=== PATIENT | female | born 1960 | race Caucasian/White ===

== ENCOUNTER → 2017-11-12 | Outpatient (CLI) | payer MEDICARE, OTHER | LOC: CARD 15:04 | PROVIDERS: ATTEND Family Medicine | DX: M79.605 Pain in left leg (principal); M79.604 Pain in right leg | CPT/HCPCS: 93922; 93925 ==

== ENCOUNTER → 2017-11-18 | Outpatient (CLI) | payer MEDICARE, OTHER ==
--- NOTE | 2017-11-18 14:22 | Diagnostic Imaging Report ---
PROCEDURE:X-RAY CERVICAL SPINE, TWO VIEWS COMPARISON:Cervical spine x-rays 02/16/17 INDICATIONS:CERICALGIA FINDINGS: The lateral view is visualized from the skull base to C6. The bones are diffusely demineralized. The vertebral bodies are well-aligned. No prevertebral soft tissue swelling. Moderate disc space narrowing and endplate osteophytic lipping at C5-6 appears similar. No significant facet arthropathy. C6-C7 degenerative changes are poorly visualized on this exam. The C1/C2-odontoid interval is normal. Alignment is maintained on AP image. The lateral masses of C1 are partially obscured but appear grossly aligned. The skull base and upper chest are unremarkable. Calcifications of the left carotid bulb are stable.. CONCLUSION: Stable degenerative changes, most severe at C5-6. No new findings. Dictated by: Rose Marie Mcnamara M.D. on 11/18/2017 at 14:30 Electronically approved by: Rose Marie Mcnamara M.D. on 11/18/2017 at 14:30
--- NOTE | 2017-11-18 14:28 | Diagnostic Imaging Report ---
PROCEDURE:SP LUMBAR AP \T\ LATERAL 2-3VWS TECHNIQUE:AP, lateral and cone-down lateral views lumbar spine INDICATION:Lumbago COMPARISON:None. FINDINGS: 5 [id number] lumbar vertebral bodies. Vertebral body height is maintained. Asymmetric loss of disc space height at L3-L4 with bone on bone apposition at the right aspect of L3-L4. Associated scoliosis and degenerative endplate changes. Mild disc space height narrowing at L4-L5 and L5-S1. No evidence of spondylolisthesis. CONCLUSION: Multilevel degenerative disc disease most significant at L3-L4 and L4-L5. L3-L4 degenerative changes are asymmetric, worse on the right than on the left with associated [id number] apposition. If the patient has neuropathy MRI is recommended for evaluation. Dictated by: Mega Morase M.D. on 11/18/2017 at 14:36 Electronically approved by: Mega Moraes M.D. on 11/18/2017 at 14:36
--- NOTE | 2017-11-18 14:32 | Diagnostic Imaging Report ---
PROCEDURE:HIPS BILAT 3-4VWS (+/- PELVIS) TECHNIQUE: AP and frog-leg images of the hips obtained INDICATION:Lumbago, hip pain COMPARISON:Lumbar spine series 02/16/17 FINDINGS: The bones are diffusely demineralized. The bones are well developed without fracture, dislocation or focal osseous lesion. There no degenerative changes of either hip. Visualized portions of the sacroiliac joints are patent. There are no vascular calcifications. CONCLUSION: No degenerative changes or other osseous abnormalities to explain pain. Dictated by: Rose Marie Mcnamara M.D. on 11/18/2017 at 14:40 Electronically approved by: Rose Marie Mcnamara M.D. on 11/18/2017 at 14:40
--- NOTE | 2017-11-18 16:33 | Diagnostic Imaging Report ---
History: Neck and low back pain Comparison studies: None Technique: Sagittal T1, T2 and IR, axial T2 and axial gradient echo Intravenous contrast: None Findings: Alignment: Normal lordosis. No scoliosis. Cervicomedullary junction: No abnormalities. Patent foramen magnum. Soft tissues: No T2 hyperintense inflammatory changes. Spinal cord: Normal in size and signal from the foramen magnum through T4 Vertebrae: Normal in height and signal intensity. No fractures, infection or neoplasm. Degenerative changes: Diffuse disc degeneration with loss of T2 signal throughout the cervical spine. Decreased intervertebral space at C5-6 . C2-C3: Left uncinate process hypertrophy and facet hypertrophy results in mild left foraminal narrowing. C3-C4: Small central disc osteophyte complex and right uncinate process hypertrophy results in no significant canal stenosis and mild right foraminal narrowing C4-C5: Central disc osteophyte complex, ligamentum flavum thickening and facet hypertrophy results in moderate canal stenosis with flattening of the spinal cord. Mild right foraminal narrowing C5-C6: Diffuse posterior disc osteophyte complex, bilateral uncinate process hypertrophy, facet hypertrophy and ligamentum flavum thickening results in moderate to severe canal stenosis and moderate bilateral foraminal narrowing. Flattening of the spinal cord without signal intensity changes C6-C7: Diffuse disc osteophyte complex, uncinate process hypertrophy and facet hypertrophy results in moderate canal stenosis and moderate bilateral foraminal narrowing. Flattening of the spinal cord without signal intensity changes. C7-T1: Grossly patent canal and foramina IMPRESSION: 1. Multilevel degenerative moderate canal stenosis from C4 through C7 more significant at C5-6. Flattening of the spinal cord at this levels without signal intensity changes. 2. Moderate degenerative bilateral foraminal narrowing C5-6 and C6-7. Other mild degenerative changes as described above Signed by: DR Tucker Perez M.D. on 11/18/2017 4:30 PM
--- NOTE | 2017-11-18 18:01 | Diagnostic Imaging Report ---
History: Low back pain Comparison studies: X-ray of the lumbar spine 11/18/2017 and x-ray of the cervical spine 11/18/2017 Technique: Sagittal, coronal and axial T2 , sagittal T1 and IR, axial spin density oblique. Intravenous contrast: None Findings: Number of lumbar vertebral bodies:5 Alignment: Straightening of the lumbar spine lordosis. Grade 1 retrolistheses of L5 over S1.Mild levoscoliosis centered at L3. Soft tissues: No T2 hyperintense inflammatory changes. Multiple right cortical renal cysts measuring up to 1.2 cm at the upper pole. Paraspinal muscles: Mild fatty infiltration secondary to atrophy. Lower thoracic cord:Normal in signal and morphology. The tip of the conus is at T12-L1. Cauda equina: No masses. No arachnoiditis. Vertebrae: Mild endplate edema at L3-L4 with obliterated disc space secondary to Modic type I changes. The vertebral bodies are normal in height and signal intensity. No compression fractures, infection or neoplasm. Degenerative changes: L1-L2: No abnormalities. L2-L3: Mild bilateral facet hypertrophy and ligamentum flavum thickening without canal stenosis or foraminal narrowing. L3-L4: Disc degeneration with loss of T2 signal and decreased intervertebral space. Right central inferiorly migrated disc extrusion measuring 2.4 x 0.9 x 1.2 cm results in narrowing of the right lateral recesses contacting the descending L4 nerve root. Asymmetric right disc bulge mild facet hypertrophy and ligamentum flavum thickening results in moderate canal stenosis, severe right and mild left foraminal narrowing. Trace of fluid at the bilateral facet joints. L4-L5: Disc degeneration with loss of T2 signal. Asymmetric left disc bulge and mild facet hypertrophy results in mild canal stenosis and moderate left foraminal narrowing. L5-S1: Disc degeneration with loss of T2 signal and decreased intervertebral space. Diffuse disc bulge with superimposed central disc protrusion results in mild canal stenosis and moderate bilateral foraminal narrowing. Trace of fluid of the bilateral facet joints. Additional findings: Mild bilateral SI joint degenerative changes IMPRESSION: Moderate canal stenosis and severe right foraminal narrowing at L3-L4 secondary to asymmetric right disc bulge and posterior element hypertrophy. Possible impingement of the exiting right L3 nerve root. Right central inferiorly migrated disc extrusion at L3-L4 results in narrowing of the left lateral recess contacting the descending L4 nerve root. Moderate degenerative left foraminal narrowing at L4-L5. Mild canal stenosis and moderate bilateral foraminal narrowing at L5-S1 secondary to diffuse disc bulge with superimposed central disc protrusion and posterior element hypertrophy. Disc degeneration with Modic type I changes at L3-L4. Other mild degenerative changes as described above. Signed by: DR Tucker Perez M.D. on 11/18/2017 5:57 PM
== END ==
LOC: MRI 13:11
PROVIDERS: ATTEND Pain Medicine Pain Medicine
DX: M54.2 Cervicalgia (principal); M54.5 Low back pain; M25.552 Pain in left hip; M25.551 Pain in right hip
CPT/HCPCS: 72040; 72100; 72141; 72148; 73522

== ENCOUNTER → 2019-04-06 | Outpatient (CLI) | payer MEDICARE ==
[~2019-04-06] MED LIST: FENTANYL CITRATE/PF 100MCG/2 ML INJ ONE; SODIUM CHLORIDE 0.9% 500ML 1,000 ML ONE; SODIUM CHLORIDE 0.9% 500ML 500 ML ONE
[2019-04-06 14:07] VITALS: BP 130/86
== END ==
LOC: MRI 09:31
PROVIDERS: ATTEND Radiology Neuroradiology
DX: M54.12 Radiculopathy, cervical region (principal); M54.14 Radiculopathy, thoracic region; M54.16 Radiculopathy, lumbar region
CPT/HCPCS: 36415; 72141; 72146; 72148; 82948; J7040

== ENCOUNTER 2020-04-23 11:18 | Emergency (ER) | payer MEDICARE, OTHER ==
[~2020-04-23] VITALS: Ht 162.6 cm; Wt 63.5 kg
--- NOTE | 2020-04-23 11:41 | Emergency Department Note ---
History of Present Illnes History of Present Illness Chief Complaint: General Medicine Complaints History of Present Illness This is a 59 year old female arrived to the ED with complaints of right hip pain after slipping and falling on her right side. Patient admits to taking MS Contin and [place] prior to arrival but states her pain is not relieved. Chief Complaint Comment STATES SHE SLIPPED AND FELL LANDED ON RIGHT HIP 3 DAYS AGO STATES SHE HIT HEAD NO LOC DENIES BEING ON BLOOD THINNERS NO DEFORMITIES NOTED STATES SHE SMOKES 1.5 PACKS/CIGARETTES/DAY DENIES ETOH DENIES USING HOME O2 Historian: Patient Arrival Mode: Car Severity: moderate Onset quality: sudden Duration (how long): hour(s) Timing of current episode: constant Past Medical/Family History Physician Review I have reviewed the patient's past medical and family history. Any updates have been documented here. Past Medical History Recent Fever: No Clinical Suspicion of Infectio: No New/Unexplained Change in Ment: No Past Medical History: Diabetes, COPD, Asthma Other Medical History: NEUROPATHY Past Surgical History: Cholecysctectomy, Appendectomy, Hysterectomy Other Surgery: TONSILLECTOMY Social History Smoking Cessation: Current every day smoker Counseling Performed: Yes Alcohol Use: Social Other Last Tetanus: UTD Review of Systems Review of Systems Constitutional: Reports no symptoms EENTM: Reports no symptoms Cardiovascular: Reports no symptoms Respiratory: Reports no symptoms Gastrointestinal: Reports no symptoms Genitourinary: Reports no symptoms Musculoskeletal: Reports as per HPI, Reports back pain Integumentary: Reports no symptoms Neurological: Reports no symptoms Psychological: Reports no symptoms Endocrine: Reports no symptoms Hematological/Lymphatic: Reports no symptoms Physical Exam Related Data Allergies: Coded Allergies: aspirin (Verified Allergy, STOMACH PAIN, 09/11/11) Triage Vital Signs Vital Signs Date Time Temp Pulse Resp B/P (MAP) Pulse Ox O2 Delivery O2 Flow Rate FiO2 04/23/20 11:25 97.0 115 24 142/89 93 Vital signs reviewed: Yes Physical Exam CONSTITUTIONAL Constitutional: Present well-developed, Present well-nourished HENT HENT: Present normocephalic, Present atraumatic, Present oropharynx clear/moist, Present nose normal HENT L/R: Present left ext ear normal, Present right ext ear normal EYES Eyes: Reports PERRL, Reports conjunctivae normal NECK Neck: Present ROM normal PULMONARY Pulmonary: Present effort normal, Present breath sounds normal CARDIOVASCULAR Cardiovascular: Present regular rhythm, Present heart sounds normal, Present capillary refill normal, Present normal rate GASTROINTESTINAL Abdominal: Present soft, Present nontender, Present bowel sounds normal GENITOURINARY Genitourinary: Present exam deferred SKIN Skin: Present warm, Present dry MUSCULOSKELETAL Musculoskeletal: Present other (right-sided hip pain, no deformity, normal distal pulses) NEUROLOGICAL Neurological: Present alert, Present oriented x 3, Present no gross motor or sensory deficits PSYCHOLOGICAL Psychological: Present mood/affect normal, Present judgement normal Procedures 12 Lead ECG Interpretation ECG Interpretation : ECG: ECG 1 Prior ECG tracings: reviewed Rhythm: sinus rhythm Ectopy: atrial premature contractions Rate: normal QRS axis: normal ST segments normal: Yes T waves normal: Yes Clinical Impression: non-specific ECG Assessment & Plan Medical Decision Making MDM 69-year-old female arrived to the ED with right hip pain, concerns of a fracture. Patient with normal extremity, no eversion/inversion noted. Patient neurovascularly intact, soft compartments. Patient is in the toilet steady gait. Patient sees pain management for pain control. Assessment & Plan Final Impression: (1) Hip pain Depart Disposition: HOME, SELF-CARE Last Vital Signs Date Time Temp Pulse Resp B/P (MAP) Pulse Ox O2 Delivery O2 Flow Rate FiO2 04/23/20 11:25 97.0 115 24 142/89 93 LYNDSEY ULIS DO Apr 23, 2020 11:40
--- NOTE | 2020-04-23 13:03 | Diagnostic Imaging Report ---
TECHNIQUE: Computed tomography imaging of the left HIP was performed WITHOUT injected. contrast. Dose modulation, iterative reconstruction, and/or weight based adjustment of the mA/kV was utilized to reduce the radiation dose to as low as reasonably achievable. HISTORY: Pain COMPARISON: None available. FINDINGS: No displaced fracture. Hip joint is aligned. Mild degenerative arthrosis. Soft tissues unremarkable. IMPRESSION: No displaced fracture Signed by: Dr. Geremias Grullon M.D. on 04/23/2020 1:00 PM
--- NOTE | 2020-04-23 14:01 | Diagnostic Imaging Report ---
EXAMINATION: CHEST 2 VIEWS INDICATION: Pneumonia COMPARISON: None FINDINGS: LINES/TUBES:None LUNGS:The lungs are hyperinflated. No focal consolidation or pulmonary edema. PLEURA:No pleural effusion or pneumothorax. MEDIASTINUM:The cardiomediastinal silhouette appears normal in size and shape. BONES/SOFT TISSUES:No acute osseous injury. ABDOMEN:No free air under the diaphragm. IMPRESSION: Hyperinflated lungs. No focal pneumonia or pulmonary edema. Signed by: Shady Anthony MD on 04/23/2020 1:58 PM
== END 2020-04-23 14:24 | disposition home or self-care (01) ==
LOC: ER 11:18
DX: M25.551 Pain in right hip (principal); W01.0XXA Fall on same level from slipping, tripping and stumbling without subsequent striking against object, initial encounter; E11.40 Type 2 diabetes mellitus with diabetic neuropathy, unspecified; J44.9 Chronic obstructive pulmonary disease, unspecified; F17.210 Nicotine dependence, cigarettes, uncomplicated
CPT/HCPCS: 71046; 93005; 99283

== ENCOUNTER 2020-04-26 15:25 | Emergency (ER) | payer MEDICARE, OTHER ==
[~2020-04-26] VITALS: Ht 162.6 cm; Wt 63.5 kg
--- NOTE | 2020-04-26 18:58 | Emergency Department Note ---
History of Present Illnes History of Present Illness Chief Complaint: General Medicine Complaints History of Present Illness This is a 59 year old female arrived to the ED for continued hip pain, patient states she had imaging done recently in the ED but the pain has not gotten better. Patient admits to having this pain for several years, and worries that her recent fall may have worsened it. Chief Complaint Comment PT WAS HERE EARLIER IN THE WEEK FOR RIGHT HIP PAIN AFTER FALL XRAY AND CT DONE BOTH NEG PT D/C HOME WITH INSTRUCTIONS TO FOLLOW UP WITH PCP; PT BACK TODAY C/O PAIN STATES SHE'S BEEN DEALING WITH PAIN FOR YEARS MD IN ROOM DURING TRIAGE Historian: Patient Arrival Mode: Car Radiation: Reports non-radiation Severity: moderate Duration (how long): day(s) Timing of current episode: intermittent Progression: waxing and waning Chronicity: recurrent Past Medical/Family History Physician Review I have reviewed the patient's past medical and family history. Any updates have been documented here. Past Medical History Recent Fever: No Clinical Suspicion of Infectio: No New/Unexplained Change in Ment: No Past Medical History: Diabetes, COPD, Asthma Other Medical History: NEUROPATHY Past Surgical History: Cholecysctectomy, Appendectomy, Hysterectomy Other Surgery: TONSILLECTOMY Social History Smoking Cessation: Current every day smoker Counseling Performed: No Alcohol Use: None Any Illegal Drug Use: No TB Exposure/Symptoms: No Physically hurt or threatened: No Other Last Tetanus: UTD Any Pre-Existing Lines (PICC,: No Is patient up to date on immun: Yes Last Flu: UTD Last Pneumovax: UTD Review of Systems Review of Systems Constitutional: Reports no symptoms EENTM: Reports no symptoms Cardiovascular: Reports no symptoms Respiratory: Reports no symptoms Gastrointestinal: Reports no symptoms Genitourinary: Reports no symptoms Musculoskeletal: Reports as per HPI, Reports back pain Integumentary: Reports no symptoms Neurological: Reports no symptoms Psychological: Reports no symptoms Endocrine: Reports no symptoms Hematological/Lymphatic: Reports no symptoms Physical Exam Related Data Allergies: Coded Allergies: aspirin (Verified Allergy, STOMACH PAIN, 09/11/11) Triage Vital Signs Vital Signs Date Time Temp Pulse Resp B/P (MAP) Pulse Ox O2 Delivery O2 Flow Rate FiO2 04/26/20 15:45 98.9 98 18 143/86 97 Vital signs reviewed: Yes Physical Exam CONSTITUTIONAL Constitutional: Present well-developed HENT HENT: Present normocephalic, Present atraumatic, Present oropharynx clear/moist, Present nose normal HENT L/R: Present left ext ear normal, Present right ext ear normal EYES Eyes: Reports PERRL, Reports conjunctivae normal NECK Neck: Present ROM normal PULMONARY Pulmonary: Present effort normal, Present breath sounds normal CARDIOVASCULAR Cardiovascular: Present regular rhythm, Present heart sounds normal, Present capillary refill normal, Present normal rate GASTROINTESTINAL Abdominal: Present soft, Present nontender, Present bowel sounds normal GENITOURINARY Genitourinary: Present exam deferred SKIN Skin: Present warm, Present dry MUSCULOSKELETAL Musculoskeletal: Present tenderness NEUROLOGICAL Neurological: Present alert, Present oriented x 3, Present no gross motor or sensory deficits PSYCHOLOGICAL Psychological: Present mood/affect normal, Present judgement normal Results Imaging Imaging results reviewed: Yes Impressions Normal x-ray Assessment & Plan Medical Decision Making MDM 59-year-old female arrived to the ED with complaints of right hip pain, patient seen the ED 3 days earlier for similar complaints. Patient admits to a long standing history of chronic hip pain and sees a pain management doctor. X-ray and CT scan done on April 23 reviewed and normal, repeat imaging done in the event of a possible missed fracture initially. X-rays normal. Patient appears to exhibit signs of drug-seeking behavior, discussed at length options for nonnarcotic pain control. Lidoderm patch offered, patient politely declined and was discharged home with outpatient pain management follow-up. Patient well-appearing and ambulatory at time of discharge. Gabapentin given, orthopedic follow-up done. Assessment & Plan Final Impression: (1) Hip pain Depart Disposition: HOME, SELF-CARE Last Vital Signs Date Time Temp Pulse Resp B/P (MAP) Pulse Ox O2 Delivery O2 Flow Rate FiO2 04/26/20 15:45 98.9 98 18 143/86 97 Home Meds Active Scripts Gabapentin (GABAPENTIN) 300 Mg Capsule, 300 MG PO BID, #60 CAP Prov:LYNDSEY LUIS DO 04/26/20 LYNDSEY LUIS DO Apr 26, 2020 18:58
[2020-04-26] MEDS ORDERED: GABAPENTIN300 MG PO (19:01)
--- NOTE | 2020-04-26 20:25 | Diagnostic Imaging Report ---
EXAMINATION: Bilateral Hip Films and AP Pelvis CLINICAL HISTORY:Status post fall, right hip/pelvis pain since yesterday COMPARISON: None. DISCUSSION: RIGHT HIP: No acute, displaced fractures or dislocations. No osteolytic or osteoblastic lesions. Joint spaces are relatively well-preserved. No gross soft tissue abnormalities. LEFT HIP: No acute, displaced fractures or dislocations. No osteolytic or osteoblastic lesions. Joint spaces are relatively well-preserved. No gross soft tissue abnormalities. AP PELVIS: No acute, displaced fractures or dislocations. No osteolytic or osteoblastic lesions. Sacroiliac joints are unremarkable. Degenerative changes in the lower lumbosacral spine. Nonobstructive bowel gas pattern. No gross soft tissue abnormalities. IMPRESSION: 1. No acute, displaced fracture or dislocation. Signed by: Dr. Jayro Turner M.D. on 04/26/2020 8:22 PM
--- NOTE | 2020-04-26 21:06 | NUR ---
Patient left without discharge instructions;
== END 2020-04-26 21:06 | disposition home or self-care (01) ==
LOC: ER 15:25
DX: M25.551 Pain in right hip (principal); E11.40 Type 2 diabetes mellitus with diabetic neuropathy, unspecified; J44.9 Chronic obstructive pulmonary disease, unspecified
CPT/HCPCS: 73522; 99283